=== PATIENT | female | born 1990 | race Caucasian/White ===

== ENCOUNTER → 2016-09-09 11:09 | Outpatient (CLI) | payer MEDICAID ==
[~2016-09-09 11:09] MED LIST: ACETAMINOPHEN325 MG PO; IBUPROFEN600 MG PO; PERCOCET 5-3251 TAB PO; PRENATAL COMPLE1 TAB PO; TUMS500 MG PO; ZANTAC150 MG PO
[2016-11-10 05:38] VITALS: BMI 36.9
== END | disposition home or self-care (01) ==
LOC: D.LDO 11:09
DX: O36.8130 Decreased fetal movements, third trimester, not applicable or unspecified (principal); Z3A.30 30 weeks gestation of pregnancy

== ENCOUNTER 2016-10-04 12:34 | Inpatient (IN) | payer MEDICAID ==
[~2016-10-04] VITALS: Ht 154.9 cm; Wt 88.6 kg
[2016-10-24] MEDS ORDERED: TUMS500 MG PO (23:00)
[2016-10-24] MEDS ORDERED: PRENATAL COMPLE1 TAB PO (23:01)
[2016-10-24] MEDS ORDERED: ZANTAC150 MG PO (23:01)
[2016-10-24] MEDS ORDERED: ACETAMINOPHEN325 MG PO (23:03)
[2016-11-10 05:38] VITALS: BP 129/72; Ht 154.9 cm; Wt 88.6 kg
[2016-11-10 05:41] LABS: HEMATOCRIT 35.6 % (36.0-48.0); HEMOGLOBIN 11.8 g/dL (12-16); MCH 31.3 pg (26.0-34.0); MCHC 33.1 g/dL (31.0-37.0); MCV 94.4 fL (80.0-100.0); MEAN PLATELET VOLUME 10.9 fL (7.4-10.4); RBC 3.77 10x6/uL (4.00-5.40); WBC 19.1 10x3/uL (4.8-10.8)
[2016-11-10 06:02] LABS: UDS - AMPHET NEGATIVE QUAL (NEGATIVE); UDS - BARB NEGATIVE QUAL (NEGATIVE); UDS - BENZO NEGATIVE QUAL (NEGATIVE); UDS - COCAINE NEGATIVE QUAL (NEGATIVE); UDS - METH NEGATIVE QUAL (NEGATIVE); UDS - OPIATE NEGATIVE QUAL (NEGATIVE); UDS - PCP NEGATIVE QUAL (NEGATIVE); UDS - THC NEGATIVE QUAL (NEGATIVE)
[2016-11-10 06:17] LABS: APPEARANCE HAZY (CLEAR); BILIRUBIN NEGATIVE (NEGATIVE); COLOR YELLOW (YELLOW); GLUCOSE NEGATIVE (NEGATIVE); KETONE NEGATIVE (NEGATIVE); LEUKOCYTE ESTERASE TRACE (NEGATIVE); NITRITE NEGATIVE (NEGATIVE); PROTEIN NEGATIVE (NEGATIVE); UROBILINOGEN NORMAL (NORMAL)
[2016-11-10 06:19] LABS: BACTERIA NONE SEEN /hpf (NONE SEEN); EPITHELIAL CELLS 0-5 /hpf (0-5); RED CELLS - URINE 0-5 /hpf (0-5); WHITE CELLS - URINE 0-5 /hpf (0-5)
[2016-11-10 11:06] LABS: UDS - AMPHET NEGATIVE QUAL (NEGATIVE); UDS - BARB NEGATIVE QUAL (NEGATIVE); UDS - BENZO NEGATIVE QUAL (NEGATIVE); UDS - COCAINE NEGATIVE QUAL (NEGATIVE); UDS - METH NEGATIVE QUAL (NEGATIVE); UDS - OPIATE NEGATIVE QUAL (NEGATIVE); UDS - PCP NEGATIVE QUAL (NEGATIVE); UDS - THC NEGATIVE QUAL (NEGATIVE)
[2016-11-10 11:11] LABS: APPEARANCE CLEAR (CLEAR); BILIRUBIN NEGATIVE (NEGATIVE); COLOR YELLOW (YELLOW); GLUCOSE NEGATIVE (NEGATIVE); KETONE NEGATIVE (NEGATIVE); LEUKOCYTE ESTERASE 1+ (NEGATIVE); NITRITE NEGATIVE (NEGATIVE); PROTEIN NEGATIVE (NEGATIVE); SPECIFIC GRAVITY 1.005 (1.005-1.020); UROBILINOGEN NORMAL (NORMAL)
[2016-11-10 11:12] LABS: BACTERIA FEW /hpf (NONE SEEN); EPITHELIAL CELLS 0-5 /hpf (0-5); RED CELLS - URINE 0-5 /hpf (0-5)
[2016-11-10 11:13] LABS: MUCUS <1+ /lpf (NONE SEEN)
--- NOTE | 2016-11-10 19:00 | NUR ---
PM ROUNDS MADE, PT UP IN ROOM, VISITING WITH A ROOM FULL OF PEOPLE, INFORMED PT THAT I WILL COME BACK SHORTLY TO DO ASSESSMENT, PT VERBALIZES UNDERSTANDING, DENIES NEEDS AT THIS TIME
--- NOTE | 2016-11-10 20:01 | NUR ---
PT OUT OF ROOM AT THIS TIME
[2016-11-10 21:44] VITALS: BP 114/79
--- NOTE | 2016-11-10 21:44 | NUR ---
ASSESSMENT PER FLOW SHEET, VS OBTAINED, SALINE LOCK IN LEFT HAND INTACT WITH NO REDNESS OR EDEMA, FF, ML, U/1, LIGHT BLEEDING NOTED WITH NO CLOTS, PT REPORTS "LITTLE" FLATUS, NO BM, AND VOIDING BY SELF WITH NO DIFFICULTY, PT USING [facility] CARE INST, ADM MOM PO PER MD ORDERS, SEE EMAR, PT DENIES NEEDS, BEDDING PROVIDED TO FOB
--- NOTE | 2016-11-10 22:12 | NUR ---
BABY TO ROOM VIA OPEN CRIB CART PER THIS RN, BANDS CHECKED, GONSALO HUNTER, MARGOT, IN ROOM ADM MEDS, SEE EMAR
--- NOTE | 2016-11-11 00:29 | NUR ---
PT AUTOMOTIVE CUSTOMER EXPERIENCE ADVISOR LIGHT, ADM PERCOCET PO PER MD ORDERS FOR PAIN, SEE EMAR, PT DENIES FURTHER NEEDS, FOB AT BEDSIDE
--- NOTE | 2016-11-11 02:23 | NUR ---
PT AWAKE, STATES "I'M HAVING A HARD TIME SLEEPING, I JUST SEEM TO DOZE OFF AND ON", PT DENIES NEEDS OR PAIN AT THIS TIME, FOB ASLEEP ON COUCH
--- NOTE | 2016-11-11 04:16 | NUR ---
BABY TO ROOM VIA OPEN CRIB CART PER THIS RN, BANDS CHECKED
--- NOTE | 2016-11-11 04:16 | NUR ---
PT CONSTRUCTION CODE ADMINISTRATOR LIGHT. REQUESTS MEDICATION FOR PAIN PT RATES 02/12. ADMINISTERED MOTRIN PO PER ORDERS AT THIS TIME. PT REQUESTS LEMON SH[place] SODA AND CUP OF ICE. DENIES OTHER NEEDS. BED LOW. PHONE AND CALL LIGHT IN REACH. SRX2.
[2016-11-11 05:07] LABS: HEMATOCRIT 29.8 % (36.0-48.0); HEMOGLOBIN 9.9 g/dL (12-16); MCH 31.3 pg (26.0-34.0); MCHC 33.2 g/dL (31.0-37.0); MCV 94.3 fL (80.0-100.0); MEAN PLATELET VOLUME 10.2 fL (7.4-10.4); PLATELET COUNT 257 10x3/uL (130-400); RBC 3.16 10x6/uL (4.00-5.40); RDW 14.3 % (11.5-14.5); WBC 20.9 10x3/uL (4.8-10.8)
--- NOTE | 2016-11-11 05:35 | NUR ---
PT MAIL TECHNICIAN LIGHT, ADM PERCOCET PO PER MD ORDERS, SEE EMAR, PT DENIES FURTHER NEEDS, BABY IN OPEN CRIB CART AND FOB AT BEDSIDE
[2016-11-11 05:40] LABS: EOSINOPHILS 1 % (0-7); LYMPHOCYTES 17 % (15-50); MONOCYTES 3 % (2-11); NEUTROPHILS 72 % (40-80); PLATELET ESTIMATE NORMAL
[2016-11-11 05:41] LABS: PLATELET MORPHOLOGY GIANT PLTS PRESENT
[2016-11-11 06:16] LABS: RAPID PLASMA REAGIN Non Reactive (Non Reactive)
--- NOTE | 2016-11-11 06:24 | NUR ---
PT AWAKE, RATES HOLLY PAIN 2/10, DENIES NEEDS, FOB ASLEEP ON COUCH, BABY IN OPEN CRIB CART AT BEDSIDE
--- NOTE | 2016-11-11 07:00 | NUR ---
SHIFT REPORT TO DAY SHIFT
[2016-11-11 07:30] VITALS: BP 98/61
--- NOTE | 2016-11-11 07:30 | NUR ---
PT WAS RECEIVED THIS AM. SHE IS LYING IN BED, . SHE OFFERS NO COMPLAINTS. BED IS LOW, SIDE RAILS UP X 2 AND CALL LIGHT IN REACH. FOB AT BEDSIDE. SALINE LOCK NOTED L HAND PATENT. PT HAVING SMALL LOCIA RUBRA. SHE IS DOING HER PERICARE. USING BETADINE AND WATER, DERMAPLAST AND EPIFOAM. SEEMS TO BE HELPING HER.
--- NOTE | 2016-11-11 09:06 | NUR ---
PT REQUESTED PAIN MED. STATES HER PAIN IS A 6. GAVE HER MOTRIN AND NORCO FOR PAIN. SHE ALSO REQUESTED MORE EPIFOAM. ALSO GAVE HER DERMAPLAST FOR PERICARE.
--- NOTE | 2016-11-11 10:17 | NUR ---
PT IS LYING IN BED RESTING. SHE STATES PAIN IS ABOUT A 2. SALINE LOCK REMOVED. TIP INTACT.
--- NOTE | 2016-11-11 10:46 | NUR ---
SALINE LOCK REMOVED LEFT HAND. TIP INTACT.
--- NOTE | 2016-11-11 10:59 | NUR ---
Visiting with mom she is holding infant talking to him and looking at him. Mom states she would like a Mt Dew. Order placed. Denies further needs.
[2016-11-11 12:46] LABS: BASOPHILS 0.1 % (0.0-2.0); HEMATOCRIT 30.9 % (36.0-48.0); HEMOGLOBIN 10.1 g/dL (12-16); IMMATURE GRANULOCYTES 0.6 % (0-5); LYMPHOCYTES 22.1 % (15-50); MCH 31.1 pg (26.0-34.0); MCHC 32.7 g/dL (31.0-37.0); MCV 95.1 fL (80.0-100.0); MEAN PLATELET VOLUME 10.2 fL (7.4-10.4); MONOCYTES 5.9 % (2-11); NEUTROPHILS 69.3 % (40-80); PLATELET COUNT 254 10x3/uL (130-400); RBC 3.25 10x6/uL (4.00-5.40); RDW 14.4 % (11.5-14.5); WBC 15.9 10x3/uL (4.8-10.8)
--- NOTE | 2016-11-11 13:16 | NUR ---
PATIENT IS SITTING UP IN BED. STATES SHE IS READY TO GO HOME. OFFERS NO COMPLAINTS. FOB AND BABY AT BEDSIDE.
[2016-11-11] MEDS ORDERED: IBUPROFEN600 MG PO (14:05)
[2016-11-11] MEDS ORDERED: PERCOCET 5-3251 TAB PO (14:06)
--- NOTE | 2016-11-11 15:15 | NUR ---
PT WAS DISCHARGED HOME, VERBAL INSTRUCTIONS AND HANDOUTS GIVEN TO HER. FU APPTS AND PRESCRIPTIONS ALSO GIVE. PT WAS TAKEN TO VEHICLE BY WHEELCHAIR.
== END 2016-11-11 15:15 | disposition home or self-care (01) | DRG 775 ==
LOC: D.LD
PROVIDERS: ADMIT Specialist
PROC: 10E0XZZ Delivery of Products of Conception, External Approach (ICD-10-PCS; principal; 2016-11-10)
PROC: 0W8NXZZ Division of Female Perineum, External Approach (ICD-10-PCS; 2016-11-10)
DX: O99.214 Obesity complicating childbirth (principal); Z3A.39 39 weeks gestation of pregnancy; Z37.0 Single live birth; Z68.37 Body mass index [BMI] 37.0-37.9, adult; O99.344 Other mental disorders complicating childbirth; O99.324 Drug use complicating childbirth; F12.90 Cannabis use, unspecified, uncomplicated; O99.334 Smoking (tobacco) complicating childbirth

== ENCOUNTER 2016-10-24 19:40 | Outpatient (CLI) | payer MEDICAID ==
[2016-10-24 20:25] LABS: APPEARANCE HAZY (CLEAR); BACTERIA MODERATE /hpf (NONE SEEN); BILIRUBIN NEGATIVE (NEGATIVE); COLOR YELLOW (YELLOW); GLUCOSE NEGATIVE (NEGATIVE); KETONE NEGATIVE (NEGATIVE); LEUKOCYTE ESTERASE 1+ (NEGATIVE); NITRITE NEGATIVE (NEGATIVE); PROTEIN NEGATIVE (NEGATIVE); RED CELLS - URINE 0-5 /hpf (0-5); SPECIFIC GRAVITY 1.015 (1.005-1.020); UROBILINOGEN NORMAL (NORMAL); WHITE CELLS - URINE 25-50 /hpf (0-5)
[2016-10-24 21:09] LABS: APPEARANCE CLEAR (CLEAR); BILIRUBIN NEGATIVE (NEGATIVE); COLOR YELLOW (YELLOW); GLUCOSE NEGATIVE (NEGATIVE); KETONE NEGATIVE (NEGATIVE); LEUKOCYTE ESTERASE NEGATIVE (NEGATIVE); NITRITE NEGATIVE (NEGATIVE); PROTEIN NEGATIVE (NEGATIVE); UROBILINOGEN NORMAL (NORMAL)
[2016-10-24] MEDS ORDERED: TUMS500 MG PO (23:00)
[2016-10-24] MEDS ORDERED: ZANTAC150 MG PO (23:01)
[2016-10-24] MEDS ORDERED: PRENATAL COMPLE1 TAB PO (23:01)
[2016-10-24] MEDS ORDERED: ACETAMINOPHEN325 MG PO (23:03)
[2016-11-10 05:38] VITALS: BMI 36.9
== END 2016-10-25 04:30 | disposition home or self-care (01) ==
LOC: D.LDO 19:40 → D.LD 19:41 → D.LDO 10-25 00:16
PROVIDERS: Obstetrics & Gynecology
DX: Z34.83 Encounter for supervision of other normal pregnancy, third trimester (principal); Z3A.36 36 weeks gestation of pregnancy

== ENCOUNTER 2016-12-01 16:17 | Emergency (ER) | payer MEDICAID ==
[2016-11-10 05:38] VITALS: BMI 36.9
[2016-12-01 18:28] LABS: BASOPHILS 0.2 % (0.0-2.0); HEMATOCRIT 42.5 % (36.0-48.0); HEMOGLOBIN 14.3 g/dL (12-16); IMMATURE GRANULOCYTES 0.4 % (0-5); LYMPHOCYTES 40.1 % (15-50); MCH 30.5 pg (26.0-34.0); MCHC 33.6 g/dL (31.0-37.0); MCV 90.6 fL (80.0-100.0); MEAN PLATELET VOLUME 9.7 fL (7.4-10.4); MONOCYTES 5.8 % (2-11); NEUTROPHILS 51.5 % (40-80); RBC 4.69 10x6/uL (4.00-5.40); RDW 12.6 % (11.5-14.5); WBC 10.5 10x3/uL (4.8-10.8)
[2016-12-01 18:33] LABS: PLATELET COUNT 357 10x3/uL (130-400)
[2016-12-01 18:42] LABS: ALBUMIN 4.1 g/dL (3.4-5.0); ANION GAP 16.6 mmol/L (8-16); APPEARANCE CLEAR (CLEAR); BILIRUBIN - TOTAL 0.28 mg/dL (0.2-1.3); CALCIUM 9.3 mg/dL (8.5-10.1); COLOR YELLOW (YELLOW); POTASSIUM - SERUM 3.6 mmol/L (3.5-5.1); PROTEIN - SERUM 7.5 g/dL (6.4-8.2); SPECIFIC GRAVITY 1.015 (1.005-1.020)
[2016-12-01 18:43] LABS: BACTERIA MODERATE /hpf (NONE SEEN); BILIRUBIN NEGATIVE (NEGATIVE); EPITHELIAL CELLS 0-5 /hpf (0-5); GLUCOSE NEGATIVE (NEGATIVE); KETONE NEGATIVE (NEGATIVE); LEUKOCYTE ESTERASE 1+ (NEGATIVE); NITRITE NEGATIVE (NEGATIVE); PROTEIN NEGATIVE (NEGATIVE); RED CELLS - URINE 0-5 /hpf (0-5); UROBILINOGEN NORMAL (NORMAL); WHITE CELLS - URINE 25-50 /hpf (0-5)
[2016-12-01 19:10] LABS: HCG SERUM NEGATIVE (NEGATIVE)
== END 2016-12-01 19:13 | disposition home or self-care (01) ==
LOC: D.ER 16:17
PROVIDERS: Emergency Medicine; Physician Assistant
DX: R10.9 Unspecified abdominal pain (principal)

== ENCOUNTER 2017-02-10 05:50 | Day surgery (SDC) | payer MEDICAID ==
[2017-02-08 11:25] LABS: BASOPHILS 0.3 % (0-2); EOSINOPHILS 4.6 % (0-7); HEMATOCRIT 45.9 % (36.0-48.0); HEMOGLOBIN 15.4 g/dL (12-16); IMMATURE GRANULOCYTES 0.2 % (0-5); LYMPHOCYTES 29.6 % (15-50); MCH 29.4 pg (26.0-34.0); MCHC 33.6 g/dL (31.0-37.0); MCV 87.6 fL (80.0-100.0); MEAN PLATELET VOLUME 9.9 fL (7.4-10.4); MONOCYTES 7.5 % (2-11); NEUTROPHILS 57.8 % (40-80); RBC 5.24 10x6/uL (4.00-5.40); RDW 13.5 % (11.5-14.5)
[2017-02-08 11:33] LABS: CALC OSMOLALITY 275 mosm/kg (275-300); CALCIUM 9.6 mg/dL (8.5-10.1); CARBON DIOXIDE 26.2 mmol/L (21.0-32.0); CHLORIDE - SERUM 105 mmol/L (98-107); CREATININE - SERUM 0.8 mg/dL (0.6-1.3); GLUCOSE 89 mg/dL (74-106); PLATELET COUNT 256 10x3/uL (130-400); POTASSIUM - SERUM 4.2 mmol/L (3.5-5.1); SODIUM 140 mmol/L (136-145); UREA NITROGEN 8 mg/dL (7-18); eGFR NON AFRICAN AMERICAN > 90 mL/min (90-120)
[~2017-02-10] VITALS: Ht 152.4 cm; Wt 74.8 kg
--- NOTE | ~2017-02-10 | OP ---
PATIENT NAME: SARAH MATSON MEDICAL RECORD: [id number] :88 LOC[facility] ADMISSION DATE: SURGEON: GENIA RUANO MD DATE OF OPERATION: 02/10/2017 PREOPERATIVE DIAGNOSES: 1. Multiparity, the patient desires permanent sterility. 2. The patient desires if possible, bilateral salpingectomy. POSTOPERATIVE DIAGNOSES: 1. Multiparity, the patient desires permanent sterility. 2. The patient desires if possible, bilateral salpingectomy 3. Adhesive disease involving bilateral adnexa. PROCEDURES: 1. Laparoscopic bilateral tubal ligation via bipolar cautery. 2. Attempted lysis of adhesions. SURGEON: Genia Ruano MD ESTIMATED BLOOD LOSS: Minimal. INTRAVENOUS FLUIDS: Per anesthesia record. SPECIMENS: None. COMPLICATIONS: None apparent. PROCEDURE IN DETAIL: The patient was taken to the operating room where general anesthesia was achieved without difficulty. The patient was then prepped and draped in normal sterile fashion in the dorsal lithotomy position in the [facility]. A Vaughan catheter was then placed into the bladder. A Pelosi uterine manipulator was then placed into the uterus with a single tooth tenaculum on the anterior lip of the cervix. Attention was then turned to the umbilicus where a 5-mm skin incision was made with an 11 blade and a 5-mm bladeless trocar was used to enter the intraperitoneal space under direct visualization of the laparoscope. The introducer was removed and intraperitoneal placement was confirmed. The patient was then insufflated, opening pressure was consistent with intraperitoneal placement. A second trocar was then placed approximately 5 cm above the pubic symphysis in the midline under direct visualization of the laparoscope. At this point, a survey of the abdomen and pelvis was performed. The fimbriated end of the tube was found to be densely adherent to the right ovary. Dissection was attempted; however, this resulted in areas of bleeding that I felt that continued dissection would result in need for oophorectomy. At this point, the areas of bleeding were cauterized using the bipolar cautery and attention was then turned to the mid portion of the tubes, which were then cauterized approximately 4-5 cm through their entirety. No bleeding was noted from any of the surgical sites. At this point, the similar scarring was evident on the left adnexa as well. Following fulguration of the tubes, the instruments were removed, the patient was desufflated and the uterine manipulator was removed. The skin was repaired with 3-0 Vicryl in an interrupted fashion. The patient tolerated the procedure well and was transported to postanesthesia recovery stable without incident. TRANSINT:[id number] Voice Confirmation ID: [id number] DOCUMENT ID: [id number] OPERATIVE REPORT [id number] SARAH MATSON MICHAEL W MD CC: [id number] DICTATION DATE: 02/19/17933 BALLISTIC EXPERT: 02/19/171950 [facility] 02/10/17 [facility] [address] [place] [address]
[~2017-02-10 05:50] MED LIST changes: +MELATONIN10 M1 PO
[2017-02-10 08:05] LABS: HCG URINE NEGATIVE (NEGATIVE)
[2017-02-10 08:09] VITALS: BP 94/57; Ht 152.4 cm; Wt 74.8 kg
--- NOTE | 2017-02-10 14:23 | NUR ---
1345-PT TO ROOM, TRANSFERRED SELF FROM BED TO STRETCHER WITHOUT DIFFICULTY. VSS. FAMILY AT BEDSIDE. FULL LIQUIDS TOLERATED. WILL MONITOR. 1415-FULL LIQUIDS TOLERATED. UP OOB TO BR, VOIDED WITHOUT DIFFICULTY. PT WITH QUESTIONS, ANSWERED NEEDED. INSTRUCTED TO CALL DR BENNETT FOR OTHER QUESTIONS OR CONCERNS.
--- NOTE | 2017-02-10 14:55 | NUR ---
1435-IV D/C'D, PT TOLERATED. CATHETER INTACT 1450-DISCHARGE INSTRUCTIONS COMPLETED, PT VERBALIZED UNDERSTANDING. PAPERWORK SIGNED. 1455-PT DISCHARGED VIA WHEELCHAIR WITH FAMILY.
== END 2017-02-10 14:55 | disposition home or self-care (01) ==
LOC: D.OPS 05:50 → D.PAN 10:15 → D.OPS 11:10
PROVIDERS: Obstetrics & Gynecology
DX: Z30.2 Encounter for sterilization (principal)